=== PATIENT | male | born 1975 | race Caucasian/White ===

== ENCOUNTER → 2016-10-05 | Outpatient (CLI) | payer OTHER ==
[~2016-10-05] MED LIST: ANAPROX DS550 MG PO; ANUSOL-HC25 MG R; AUGMENTIN 875 M1 TAB PO; CIPROFLOXACIN500 MG PO; CLEOCIN150 MG PO; COLACE100 MG PO; DOXYCYCLINE MO100 MG PO; FLEXERIL5 MG PO; IBUPROFEN600 MG PO; MOTRIN600 MG PO; Motrin,Rufen800 MG PO; NORFLEX100 MG PO; PEPCID20 MG PO; TRAMADOL HCL50 MG PO; VOLTAREN50 M1 PO
[2016-10-05 13:16] LABS: CHOLESTEROL 229 mg/dL (<200); HDL CHOLESTEROL 43 mg/dl (40-60); LDL CHOLESTEROL 136 mg/dL (9-159); TRIGLYCERIDES 249 mg/dl (<150); VLDL CHOLESTEROL 50 mg/dL (6-40)
== END | disposition home or self-care (01) ==
LOC: LAB 12:11
PROVIDERS: Internal Medicine
DX: Z82.49 Family history of ischemic heart disease and other diseases of the circulatory system (principal)

== ENCOUNTER → 2021-07-18 | Outpatient (CLI) | payer OTHER | END | disposition home or self-care (01) | LOC: RAD 14:25 | PROVIDERS: ATTEND Preventive Medicine Occupational Medicine | DX: R07.9 Chest pain, unspecified (principal); R07.81 Pleurodynia ==